=== PATIENT | female | born 1940 | race Caucasian/White ===

== ENCOUNTER 2020-10-24 22:13 | Inpatient (IN) | payer MEDICARE, MEDICAID ==
[~2020-10-24] VITALS: Ht 167.6 cm; Wt 68.0 kg
--- NOTE | 2020-10-24 23:24 | NUR ---
PT ON FLOOR PER EMS @ 2218 FROM [facility] pT UNRESPONSIVE AND ON BIPAP. PT 02 84% ON [address] RIVERA THE FLOOR ORDERS TO INTUBATE.Bagged @221 DR. GREER FROM ER INTUBATED. Amanda RN admimistered IV MEDS FOR Sedation 2221 20 of etomidate ivp 2222 100 succinate ivp 86% per bag hr 124 2224 new iv placed per Lily guadarrama right lower forarm 22g 2226 75 ketamine ivp 2229 80 rocuronium ivp 2231 tubed 21 @lip 98% 111hr 2235 chest xray 2237 consult general surgery for a line DR. RICHMOND NOTIFIED. PT tranfered to ICU ROOM 2109 BED SIDE REPORT GIVEN TO NEIL.
[2020-10-24 23:49] LABS: HEMOGLOBIN 9.1 gm/dl (12.3-15.3); RED BLOOD COUNT 2.89 M/UL (4.00-5.10); WHITE BLOOD COUNT 20.5 K/UL (4.5-11.0)
[2020-10-25] MEDS ORDERED: METOPROLOL TART25 MG PO (00:42)
[2020-10-25] MEDS ORDERED: CENTRUM SILVER1 EAC1 PO (00:43)
[2020-10-25] MEDS ORDERED: LEVOTHYROXINE150 MC1 PO (00:43)
[2020-10-25] MEDS ORDERED: VITAMIN D31250 MCG PO (00:44)
[2020-10-25] MEDS ORDERED: OMEPRAZOLE20 M1 PO (00:45)
[2020-10-25] MEDS ORDERED: CALCIUM CITRAT1 EAC4 PO (00:45)
[2020-10-25] MEDS ORDERED: VITAMIN B-1000 MCG/1 PO (00:46)
[2020-10-25] MEDS ORDERED: LASIX20 MG PO (00:49)
[2020-10-25] MEDS ORDERED: DOCUSATE SODIU100 MG PO (00:50)
[2020-10-25] MEDS ORDERED: OSTEO BI-FLEX1 EAC1 PO (00:51)
--- NOTE | 2020-10-25 01:08 | NUR ---
RESPIRATORY NOTIFIED OF ABG RESULTS AND STATED THAT HE WOULD WEAN O2 ONCE HE GOT OVER TO THE UNIT.
[2020-10-25 04:56] LABS: HEMOGLOBIN 9.6 gm/dl (12.3-15.3); RED BLOOD COUNT 3.01 M/UL (4.00-5.10)
[2020-10-25 07:44] LABS: HEMOGLOBIN 9.9 gm/dl (12.3-15.3); RED BLOOD COUNT 3.11 M/UL (4.00-5.10); WHITE BLOOD COUNT 24.7 K/UL (4.5-11.0)
[2020-10-26 05:40] LABS: HEMOGLOBIN 8.3 gm/dl (12.3-15.3)
[2020-10-26 05:41] LABS: RED BLOOD COUNT 2.64 M/UL (4.00-5.10); WHITE BLOOD COUNT 16.5 K/UL (4.5-11.0)
[2020-10-28 05:24] LABS: HEMOGLOBIN 8.1 gm/dl (12.3-15.3); RED BLOOD COUNT 2.68 M/UL (4.00-5.10); WHITE BLOOD COUNT 15.3 K/UL (4.5-11.0)
[2020-10-29 04:26] LABS: HEMOGLOBIN 7.9 gm/dl (12.3-15.3); RED BLOOD COUNT 2.56 M/UL (4.00-5.10); WHITE BLOOD COUNT 16.6 K/UL (4.5-11.0)
--- NOTE | 2020-10-29 05:12 | NUR ---
0512 DR FLOR AWARE OF AM K. K PROTOCOL ORDER PLACED.
[2020-10-30 04:53] LABS: HEMOGLOBIN 7.8 gm/dl (12.3-15.3); RED BLOOD COUNT 2.55 M/UL (4.00-5.10); WHITE BLOOD COUNT 17.6 K/UL (4.5-11.0)
[2020-10-30 14:11] LABS: BODY FLUID SOURCE ASCITES
[2020-10-30 14:51] LABS: TOTAL PROTEIN, BODY FLUID 3.2 gm/dL
[2020-10-30 16:10] LABS: A/G RATIO 0.8 (0.7-1.7); ALBUMIN 2.6 g/dL (2.9-4.4); ALPHA-1-GLOBULIN 0.2 g/dL (0.0-0.4); ALPHA-2-GLOBULIN 0.6 g/dL (0.4-1.0); BETA GLOBULIN 1.2 g/dL (0.7-1.3); GAMMA GLOBULIN 1.7 g/dL (0.4-1.8); GLOBULIN, TOTAL 3.7 g/dL (2.2-3.9); IMMUNOGLOBULIN A, QN, SERUM 1229 mg/dL (64-422); IMMUNOGLOBULIN G, QN, SERUM 1633 mg/dL (586-1602); IMMUNOGLOBULIN M, QN, SERUM 89 mg/dL (26-217); M-SPIKE Not Observed g/dL (Not Observed); PROTEIN, TOTAL, SERUM 6.3 g/dL (6.0-8.5)
[2020-10-30 16:18] LABS: ADENOVIRUS F 40/41 Not Detected (Negative); ASTROVIRUS Not Detected (Negative); CAMPYLOBACTER Not Detected (Negative); CLOSTRIDIUM DIFFICILE TOX A/B Not Detected (Negative); CRYPTOSPORIDIUM Not Detected (Negative); E.COLI 0157 Not Detected (Negative); ENTAMOEBA HISTOLYTICA Not Detected (Negative); ENTEROAGGREGATIVE E.COLI (EAEC Not Detected (Negative); ENTEROPATHOGENIC E.COLI (EPEC) Not Detected (Negative); ENTEROTOXIGENIC E.COLI (ETEC) Not Detected (Negative); GIARDIA LAMBLIA Not Detected (Negative); NOROVIRUS GI/GII Not Detected (Negative); PLESIOMONAS SHIGELLOIDES Not Detected (Negative); ROTOVIRUS A Not Detected (Negative); SALMONELLA Not Detected (Negative); SAPOVIRUS Not Detected (Negative); SHIG/ENTEROINVAS.ECOLI (EIEC) Not Detected (Negative); SHIGA-LIK TOX.PRO.E.COLI (STEC Not Detected (Negative); VIBRIO Not Detected (Negative); VIBRIO CHOLERAE Not Detected (Negative); YERSINIA ENTEROCOLITICA Not Detected (Negative)
[2020-10-31 05:15] LABS: HEMOGLOBIN 7.6 gm/dl (12.3-15.3); RED BLOOD COUNT 2.54 M/UL (4.00-5.10)
[2020-10-31 12:48] LABS: RED BLOOD COUNT 2.63 M/UL (4.00-5.10)
[2020-10-31 13:04] LABS: WHITE BLOOD COUNT 46.5 K/UL (4.5-11.0)
[2020-11-01 06:45] LABS: RED BLOOD COUNT 2.23 M/UL (4.00-5.10); WHITE BLOOD COUNT 31.5 K/UL (4.5-11.0)
[2020-11-02 05:16] LABS: HEMOGLOBIN 8.1 gm/dl (12.3-15.3)
[2020-11-02 06:17] LABS: RED BLOOD COUNT 2.58 M/UL (4.00-5.10); WHITE BLOOD COUNT 16.8 K/UL (4.5-11.0)
[2020-11-03 05:07] LABS: HEMOGLOBIN 7.8 gm/dl (12.3-15.3); RED BLOOD COUNT 2.53 M/UL (4.00-5.10); WHITE BLOOD COUNT 16.1 K/UL (4.5-11.0)
[2020-11-05 23:39] LABS: ACINETOBACTER BAUMANNII Not Detected (Negative); CANDIDA ALBICANS Not Detected (Negative); CANDIDA KRUSEI Not Detected (Negative); CANDIDA TROPICALIS Not Detected (Negative); ENTEROCOCCUS Not Detected (Negative); ESCHERICHIA COLI Not Detected (Negative); HAEMOPHILUS INFLUENZAE Not Detected (Negative); KLEBSIELLA OXYTOCA Not Detected (Negative); KLEBSIELLA PNEUMONIAE Not Detected (Negative); KPC-CARBAPENEM-RESISTANCE GENE Not Detected (Negative); PROTEUS Not Detected (Negative); PSEUDOMONAS AERUGINOSA Not Detected (Negative); SERRATIA MARCESANS Not Detected (Negative); STAPHYLOCOCCUS Not Detected (Negative); STAPHYLOCOCCUS AUREUS Not Detected (Negative); STREP AGALACTIAE (GROUP B) Not Detected (Negative); STREP PYOGENES (GROUP A) Not Detected (Negative); STREPTOCOCCUS Not Detected (Negative); mecA (METHICILLIN RESIST GENE Not Detected (Negative); vanA/B (VANCOMYCIN RESIST GENE Not Detected (Negative)
== END 2020-11-03 11:01 | disposition expired | DRG 870 ==
LOC: CCU 22:13 → PROG CARE 22:13 → CCU 22:43
PROVIDERS: Internal Medicine; Internal Medicine Infectious Disease; Internal Medicine Nephrology; Internal Medicine Pulmonary Disease; Surgery; ADMIT Internal Medicine
PROC: 5A1955Z Respiratory Ventilation, Greater than 96 Consecutive Hours (ICD-10-PCS; principal; 2020-10-24)
PROC: 3E033XZ Introduction of Vasopressor into Peripheral Vein, Percutaneous Approach (ICD-10-PCS; 2020-10-24)
PROC: 0BH18EZ Insertion of Endotracheal Airway into Trachea, Via Natural or Artificial Opening Endoscopic (ICD-10-PCS; 2020-10-24)
PROC: 8E0ZXY6 Isolation (ICD-10-PCS; 2020-10-24)
PROC: 3E0333Z Introduction of Anti-inflammatory into Peripheral Vein, Percutaneous Approach (ICD-10-PCS; 2020-10-24)
PROC: 02HV33Z Insertion of Infusion Device into Superior Vena Cava, Percutaneous Approach (ICD-10-PCS; 2020-10-24)
PROC: 3E02340 Introduction of Influenza Vaccine into Muscle, Percutaneous Approach (ICD-10-PCS; 2020-10-25)
PROC: B24BZZZ Ultrasonography of Heart with Aorta (ICD-10-PCS; 2020-10-26)
PROC: 0DH67UZ Insertion of Feeding Device into Stomach, Via Natural or Artificial Opening (ICD-10-PCS; 2020-10-26)
PROC: 3E0G76Z Introduction of Nutritional Substance into Upper GI, Via Natural or Artificial Opening (ICD-10-PCS; 2020-10-26)
PROC: 30233N1 Transfusion of Nonautologous Red Blood Cells into Peripheral Vein, Percutaneous Approach (ICD-10-PCS; 2020-10-27)
DX: A41.89 Other specified sepsis (principal); U07.1 COVID-19; J12.82 Pneumonia due to coronavirus disease 2019; R65.21 Severe sepsis with septic shock; J80 Acute respiratory distress syndrome; J15.9 Unspecified bacterial pneumonia; I21.A1 Myocardial infarction type 2; N17.0 Acute kidney failure with tubular necrosis; J98.11 Atelectasis; E87.2 Acidosis; E87.0 Hyperosmolality and hypernatremia; A08.39 Other viral enteritis; G93.40 Encephalopathy, unspecified; Z23 Encounter for immunization; D63.1 Anemia in chronic kidney disease; I12.9 Hypertensive chronic kidney disease with stage 1 through stage 4 chronic kidney disease, or unspecified chronic kidney disease; N18.30 Chronic kidney disease, stage 3 unspecified; E03.9 Hypothyroidism, unspecified; G89.4 Chronic pain syndrome; I07.1 Rheumatic tricuspid insufficiency; D69.6 Thrombocytopenia, unspecified; Z96.659 Presence of unspecified artificial knee joint; K74.60 Unspecified cirrhosis of liver; M79.7 Fibromyalgia; E87.6 Hypokalemia; Z90.49 Acquired absence of other specified parts of digestive tract; Z98.890 Other specified postprocedural states; Z90.89 Acquired absence of other organs; Z80.1 Family history of malignant neoplasm of trachea, bronchus and lung; Z88.5 Allergy status to narcotic agent; Z80.51 Family history of malignant neoplasm of kidney; Z88.8 Allergy status to other drugs, medicaments and biological substances; Z80.6 Family history of leukemia; Z82.49 Family history of ischemic heart disease and other diseases of the circulatory system; Z79.52 Long term (current) use of systemic steroids; Z95.2 Presence of prosthetic heart valve; Z79.899 Other long term (current) drug therapy
CPT/HCPCS: ECHO; 31500; 36415; 36430; 36600; 71045; 80048; 80053; 80202; 81001; 82550; 82553; 82570; 82728; 82784; 82803; 82962; 83605; 83735; 83880; 83883; 84133; 84155; 84156; 84157; 84165; 84300; 84484; 85007; 85014; 85018; 85025; 85027; 85379; 85384; 85610; 85730; 86140; 86334; 86850; 86900; 86901; 86920; 87040; 87070; 87077; 87150; 87186; 87205; 87507; 89050; 89051; 93005; 93306; 94002; 94003; 94760; A6212; C9113; J0330; J0456; J0692; J1100; J1650; J2020; J2704; J3010; J3370; J7030; J7040; J7050; J7070; J7120; P9012; P9016; P9047